=== PATIENT | female | born 2000 | race Caucasian/White ===

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

== ENCOUNTER → 2018-01-27 17:20 | Emergency (ER) | payer BC ==
[~2018-01-27 17:20] MED LIST: NS 0.9% 1000 ML* 1,000 ML IV ONE
[2018-01-27 17:50] LABS: ABS Basophils 0 10^3/ul (0-0.2); ABS Eosinophils 0 10^3/ul (0-0.6); ABS Lymphocytes 1.1 10^3/ul (1.0-4.8); ABS Monocytes 0.4 10^3/ul (0-0.8); ABS Neutrophils 6.9 10^3/ul (1.5-7.7); ABS Nucleated RBC 0 10^3/ul; Eosinophil % 0.1 %; Hematocrit 41 % (35-47); Hemoglobin 13.6 g/dl (12.0-16.0); Lymphocyte % 13.2 %; Mean Corpuscular HGB Conc 33 g/dl (31-36); Mean Corpuscular Hemoglobin 28 pg (27-31); Mean Corpuscular Volume 84 fL (80-97); Mean Platelet Volume 7.7 fL (7.4-10.4); Nucleated Red Blood Cells % 0; Platelet Count 310 10^3/ul (150-450); Red Blood Count 4.85 10^6/ul (4.00-5.40); Red Cell Distribution Width 16 % (10.5-15); White Blood Count 8.5 10^3/ul (3.5-10.8)
[2018-01-27 17:52] LABS: Urine Appearance Cloudy; Urine Blood 1+ (Negative); Urine Color Yellow; Urine Ketones Trace (Negative); Urine Protein Negative (Negative); Urine Red Blood Cell 1+(3-5/hpf) (Absent); Urine Specific Gravity 1.021 (1.010-1.030); Urine Urobilinogen Negative (Negative); Urine White Blood Cell Trace(0-5/hpf) (Absent)
[2018-01-27 18:30] VITALS: BP 127/65
--- NOTE | 2018-01-27 18:35 | ED ---
Syncope/Near Syncope - HPI Summary HPI Summary: Patient complains of one episode of syncope lasting 9 seconds this morning as well as feeling exhausted and stressed out 1 month. Syncope was unwitnessed, but patient states she will was able to play back to the security tape and observe event. Patient states she was walking along and then slumped towards nearby wall and slid down and denies any subsequent injury, pain. Patient states she works 100 hours a week and gets only a couple hrs of sleep a night x months. Denies any other symptoms including postictal phase, fever, cough, sore throat, MCKOY, neck stiffness, ear pain, CP, SOB, N/V/D, abdominal pain, change in urine, change in BM, vaginal symptoms. Patient states she just wants to be checked out. Medical history is none. - History Of Current Complaint Chief Complaint: EDGeneral Time Seen by Provider: 01/27/18 17:51 Hx Obtained From: Patient Onset/Duration: Sudden Onset Timing: Seconds Context: Unwitnessed, Loss Of Consciousness Activity At Onset: Other Associated Head Trauma: No Aggravating Factor(s): Nothing Alleviating Factor(s): Nothing Associated Signs And Symptoms: Negative - Allergies/Home Medications Allergies/Adverse Reactions: Allergies Allergy/AdvReac Type Severity Reaction Status Date / Time No Known Allergies Allergy Unverified 06/06/16 10:55 Home Medications: Home Medications Norelgest/Ethinyl Estr 150/35 [Xulane 150/35 PATCH] 1 patch TOPICAL WEEKLY 01/27 [History Confirmed 01/27/18] PMH/Surg Hx/FS Hx/Imm Hx Endocrine/Hematology History: Denies: Hx Anticoagulant Therapy Cardiovascular History: Denies: Hx Cardiac Arrest, Hx Congestive Heart Failure, Hx Hypertension, Hx Pacemaker/ICD, Other Cardiovascular Problems/Disorders Respiratory History: Reports: Hx Asthma Denies: Hx Chronic Obstructive Pulmonary Disease (COPD), Other Respiratory Problems/Disorders History: Denies: Hx Dialysis Neurological History: Denies: Hx CVA Infectious Disease History: No Infectious Disease History: Denies: Traveled Outside the [place] in Last 30 Days - Family History Known Family History: Positive: Hypertension - Social History Alcohol Use: None Substance Use Type: Reports: None Substance Use Comment - Amount & Last Used: 2x/week Hx Tobacco Use: No Smoking Status (MU): Former Smoker Type: Cigarettes Have You Smoked in the Last Year: Yes Review of Systems Positive: Fatigue Eyes: Negative ENT: Negative Cardiovascular: Negative Respiratory: Negative Gastrointestinal: Negative Genitourinary: Negative Musculoskeletal: Negative Skin: Negative Positive: Syncope Psychological: Normal All Other Systems Reviewed And Are Negative: Yes Physical Exam - Summary Physical Exam Summary: Physical exam unremarkable. Triage Information Reviewed: Yes Vital Signs On Initial Exam: Initial Vitals Temp Pulse Resp BP Pulse Ox 97.9 F 61 16 126/74 98 01/27/18 17:23 01/27/18 17:23 01/27/18 17:23 01/27/18 17:23 01/27/18 17:23 Vital Signs Reviewed: Yes Appearance: Positive: Well-Appearing Skin: Positive: Warm Head/Face: Positive: Normal Head/Face Inspection Eyes: Positive: Normal Neck: Positive: Supple Respiratory/Lung Sounds: Positive: Clear to Auscultation Cardiovascular: Positive: Normal Abdomen Description: Positive: Nontender Musculoskeletal: Positive: Normal Neurological: Positive: Normal Psychiatric: Positive: Normal AVPU Assessment: Alert - [place] Coma Scale Best Eye Response: 4 - Spontaneous Best Motor Response: 6 - Obeys Commands Best Verbal Response: 5 - Oriented Coma Scale Total: 15 Diagnostics - Vital Signs Vital Signs Temp Pulse Resp BP Pulse Ox 01/27/18 18:28 62 127/65 99 01/27/18 18:20 72 130/67 99 01/27/18 18:00 57 99 01/27/18 17:57 74 150/89 100 01/27/18 17:23 97.9 F 61 16 126/74 98 - Laboratory Lab Results: Lab Results 01/27/18 01/27/18 01/27/18 Range/Units 17:39 17:40 17:40 WBC 8.5 (3.5-10.8) 10^3/ul RBC 4.85 (4.00-5.40) 10^6/ul Hgb 13.6 (12.0-16.0) g/dl Hct 41 (35-47) % MCV 84 (80-97) fL MCH 28 (27-31) pg MCHC 33 (31-36) g/dl RDW 16 H (10.5-15) % Plt Count 310 (150-450) 10^3/ul MPV 7.7 (7.4-10.4) fL Neut % (Auto) 81.5 % Lymph % (Auto) 13.2 % Garrard % (Auto) 4.6 % Eos % (Auto) 0.1 % Baso % (Auto) 0.6 % Absolute Neuts (auto) 6.9 (1.5-7.7) 10^3/ul Absolute Lymphs (auto) 1.1 (1.0-4.8) 10^3/ul Absolute Monos (auto) 0.4 (0-0.8) 10^3/ul Absolute Eos (auto) 0 (0-0.6) 10^3/ul Absolute Basos (auto) 0 (0-0.2) 10^3/ul Absolute Nucleated RBC 0 10^3/ul Nucleated RBC % 0 Sodium 136 (135-145) mmol/L Potassium 4.1 (3.5-5.0) mmol/L Chloride 105 (101-111) mmol/L Carbon Dioxide 24 (22-32) mmol/L Anion Gap 7 (2-11) mmol/L BUN 18 (6-24) mg/dL Creatinine 0.86 (0.51-0.95) mg/dL Est GFR ( Amer) 102.9 (>60) Est GFR (Non-Af Amer) 85.0 (>60) BUN/Creatinine Ratio 20.9 H (8-20) Glucose 100 (70-100) mg/dL Calcium 9.9 (8.6-10.3) mg/dL Total Bilirubin 1.00 (0.2-1.0) mg/dL AST 18 (13-39) U/L ALT 14 (7-52) U/L Alkaline Phosphatase 48 (34-104) U/L Total Protein 7.7 (6.4-8.9) g/dL Albumin 4.7 (3.2-5.2) g/dL Globulin 3.0 (2-4) g/dL Albumin/Globulin Ratio 1.6 (1-3) Beta HCG, Quant < 0.60 mIU/mL Urine Color Yellow Urine Appearance Cloudy Urine pH 5.0 (5-9) Ur Specific Byron 1.021 (1.010-1.030) Urine Protein Negative (Negative) Urine Ketones Trace A (Negative) Urine Blood 1+ A (Negative) Urine Nitrate Negative (Negative) Urine Bilirubin Negative (Negative) Urine Urobilinogen Negative (Negative) Ur Leukocyte Esterase Negative (Negative) Urine WBC (Auto) Trace(0-5/hpf) (Absent) Urine RBC (Auto) 1+(3-5/hpf) A (Absent) Ur Squamous Epith Cells Present A (Absent) Urine Bacteria Absent (Absent) Urine Glucose Negative (Negative) Result Diagrams: 01/27/18 17:40 01/27/18 17:40 Lab Statement: Any lab studies that have been ordered have been reviewed, and results considered in the medical decision making process. Course/Dx Course Of Treatment: Patient complains of one episode of syncope lasting 9 seconds this morning as well as feeling exhausted and stressed out 1 month. Syncope was unwitnessed, but patient states she will was able to play back to the security tape and observe event. Patient states she was walking along and then slumped towards nearby wall and slid down and denies any subsequent injury , pain. Patient states she works 100 hours a week and gets only a couple hours of sleep a night x months. Denies any other symptoms including postictal phase , fever, cough, sore throat, MCKOY, neck stiffness, ear pain, CP, SOB, N/V/D, abdominal pain, change in urine, change in BM, vaginal symptoms. Patient states she just wants to be checked out. Medical history is none. Physical exam unremarkable. Vital signs within normal limits. Labs unremarkable except for mild dehydration. EKG sinus arrhythmia with bradycardic rate of 55. Similar to prior EKG on file. Patient given 1 L of fluids here in the ED. Advised to get 8 hours of sleep a night and maintain hydration. Follow-up with primary care. - Diagnoses Provider Diagnoses: Syncope, Exhaustion Discharge - Sign-Out/Discharge Documenting (check all that apply): Patient Departure - Discharge Plan Condition: Stable Disposition: HOME Patient Education Materials: Syncope (ED) Referrals: Jarred Canas MD [Primary Care Provider] - Additional Instructions: Drink plenty of fluids to maintain hydration. Try to get 8 hours of sleep a night. Follow-up with primary care. Return to the ED for any new or worsening symptoms - Billing Disposition and Condition Condition: STABLE Disposition: Home
--- NOTE | 2018-01-29 15:21 | PN ---
Progress Note - Progress Note Date of Service: 01/27/18 Note: Pt. seen in ED 01/29 for syncopal episode. Urine culture today is growing 75- 100k e. coli. I attempted to contact pt. today at [phone] with no answer and no voicemail setup. Will send rx for keflex based on sensitivity and send letter to return call to ER.
== END | disposition home or self-care (01) ==
LOC: ED 17:20
DX: R55 Syncope and collapse (principal); R53.83 Other fatigue; J45.909 Unspecified asthma, uncomplicated; Z87.891 Personal history of nicotine dependence; N39.0 Urinary tract infection, site not specified; B96.20 Unspecified Escherichia coli [E. coli] as the cause of diseases classified elsewhere; E86.0 Dehydration; R00.1 Bradycardia, unspecified
CPT/HCPCS: 36415; 80053; 81003; 81015; 84702; 85025; 87077; 87086; 87186; 93005; 96360; 96361; 99282

== ENCOUNTER 2021-04-21 13:46 | Observation (INO) ==
[2021-04-21] MEDS ORDERED: cefTRIAXone 2 GM ADDV.VIAL 2 GM in NS 0.9% 100 ml BAG 100 ML IVPB ONE (14:40)
[2021-04-21] MEDS ORDERED: Lactated Ringers 1000 ml BAG 1,000 ML IV ONE ×2 (14:40→23:55)
[2021-04-21] MEDS ORDERED: Ondansetron 4 mg VIAL 2 MG/ML 2 ml VIAL IV ONE (14:40)
[2021-04-21 14:58] LABS: Hematocrit 42 % (35-47); Hemoglobin 14.3 g/dL (12.0-16.0); Mean Corpuscular HGB Conc 34 g/dL (31-36); Mean Corpuscular Hemoglobin 31 pg (27-31); Mean Corpuscular Volume 90 fL (80-97); Mean Platelet Volume 7.3 fL (7.4-10.4); Platelet Count 340 10^3/uL (150-450); Red Blood Count 4.68 10^6 /uL (3.70-4.87); Red Cell Distribution Width 13 % (10-15); White Blood Count 31.7 10^3/uL (3.5-10.8)
[2021-04-21 15:01] LABS: ABS Lymphocytes 0.4 10^3/ul (1.0-4.8); ABS Monocytes 3.2 10^3/ul (0-0.8); Lymphocyte % 1.1 %
[2021-04-21 15:17] LABS: Activated Partial Thrombo Time 34.1 seconds (26.0-38.0); INR 1.32 (0.86-1.15)
[2021-04-21 15:49] LABS: Albumin 4.6 g/dL (3.2-5.2); Albumin/Globulin Ratio 1.5 (1-3); C Reactive Protein 304.56 mg/L (<8.01); Calcium 9.7 mg/dL (8.6-10.3); Potassium 3.4 mmol/L (3.5-5.0); Total Bilirubin 0.8 mg/dL (0.2-1.0); Total Protein 7.6 g/dL (6.4-8.9); eGFR CKD-EPI 91.5 (>60)
[2021-04-21 16:36] LABS: High Sensitivity Troponin 1 Hr 4 pg/mL (<15)
[2021-04-21 16:41] LABS: HCG Pregnancy < 0.60 mIU/mL
[2021-04-21 16:59] LABS: Lipase < 10 U/L (11.0-82.0)
[2021-04-21 17:40] LABS: Urine Appearance Cloudy; Urine Bilirubin Negative (Negative); Urine Blood 2+ (Negative); Urine Color Yellow; Urine Glucose Negative (Negative); Urine Ketones 1+ (Negative); Urine Nitrite Negative (Negative); Urine Protein 1+(30 mg/dL) (Negative); Urine Specific Gravity 1.017 (1.002-1.030); Urine Urobilinogen Negative (Negative)
[2021-04-21 17:46] LABS: Urine Bacteria 1+ (Absent); Urine Red Blood Cell 2+(6-10/hpf) (Absent); Urine Squamous Epithelial Cell Present (Absent); Urine White Blood Cell 3+(>20/hpf) (Absent)
[2021-04-21] MEDS ORDERED: Iohexol 300 (CONTRAST) 10 ML SDV IV ONE (18:06)
[2021-04-21] MEDS ORDERED: Potassium Chlor 20 meq TAB.ER PO ONE (21:28)
[2021-04-22] MEDS ORDERED: Ondansetron 4 mg VIAL 2 MG/ML 2 ml VIAL IV PRN (00:10)
[2021-04-22 05:30] LABS: Hematocrit 38 % (35-47); Hemoglobin 12.9 g/dL (12.0-16.0); Mean Corpuscular HGB Conc 34 g/dL (31-36); Mean Corpuscular Hemoglobin 31 pg (27-31); Mean Corpuscular Volume 90 fL (80-97); Mean Platelet Volume 7.8 fL (7.4-10.4); Platelet Count 294 10^3/uL (150-450); Red Blood Count 4.22 10^6 /uL (3.70-4.87); Red Cell Distribution Width 13 % (10-15); White Blood Count 28.2 10^3/uL (3.5-10.8)
[2021-04-22 05:49] LABS: Albumin 3.7 g/dL (3.2-5.2); Albumin/Globulin Ratio 1.4 (1-3); C Reactive Protein 322.46 mg/L (<8.01); Calcium 9.3 mg/dL (8.6-10.3); Globulin 2.6 g/dL (2-4); Magnesium 1.8 mg/dL (1.9-2.7); Potassium 4.1 mmol/L (3.5-5.0); Total Bilirubin 0.6 mg/dL (0.2-1.0); Total Protein 6.3 g/dL (6.4-8.9); eGFR CKD-EPI 113.6 (>60)
[2021-04-22 06:58] LABS: ABS Basophils 0.1 10^3/ul (0-0.2); ABS Monocytes 2.9 10^3/ul (0-0.8); ABS Neutrophils 24.3 10^3/ul (1.5-7.7); Lymphocyte % 3.5 %
[2021-04-22] MEDS ORDERED: Magnesium Sulfate 2 gm BAG 2 GM/50 ML BAG IVPB ONE (07:24)
[2021-04-22] MEDS: DESOGESTREL ETHINYL ESTRADIOL PO SCH (08:31)
[2021-04-22] MEDS ORDERED: cefTRIAXone 1 gm/50 mL NS BAG 1 GM/50 ML BAG IVPB SCH (15:30)
[2021-04-23 05:38] LABS: Hematocrit 37 % (35-47); Hemoglobin 12.7 g/dL (12.0-16.0); Mean Corpuscular HGB Conc 34 g/dL (31-36); Mean Corpuscular Hemoglobin 31 pg (27-31); Mean Corpuscular Volume 91 fL (80-97); Mean Platelet Volume 7.8 fL (7.4-10.4); Platelet Count 289 10^3/uL (150-450); Red Blood Count 4.09 10^6 /uL (3.70-4.87); Red Cell Distribution Width 13 % (10-15); White Blood Count 15.5 10^3/uL (3.5-10.8)
[2021-04-23 05:59] LABS: Calcium 8.8 mg/dL (8.6-10.3); Magnesium 1.9 mg/dL (1.9-2.7); eGFR CKD-EPI 125.8 (>60)
[2021-04-23 06:19] LABS: ABS Lymphocytes 1.3 10^3/ul (1.0-4.8); ABS Monocytes 2.3 10^3/ul (0-0.8); ABS Neutrophils 11.9 10^3/ul (1.5-7.7); Eosinophil % 0.1 %; Lymphocyte % 8.1 %
[2021-04-23] MEDS ORDERED: Magnesium Sulfate IV 1GM/100ML 1 GM/100 ML BAG IV ONE (07:09)
[2021-04-23] MEDS ORDERED: Polyethylene Glycol 3350 17 GM PACKET PO ONE (08:31)
[2021-04-23] MEDS ORDERED: Senna TAB 8.6 mg TAB PO ONE (08:31)
[2021-04-23] MEDS: DESOGESTREL ETHINYL ESTRADIOL PO SCH (10:24)
[2021-04-23 12:34] VITALS: BP 107/57
== END 2021-04-23 14:42 | disposition home or self-care (01) ==
LOC: ED 13:46 → MEDTELE 21:21 → SUATTDRO 21:21 → INTOOBSV 21:21 → MEDTELE 04-22 00:30
PROVIDERS: ADMIT Internal Medicine; ATTEND Internal Medicine

== ENCOUNTER 2023-08-14 03:47 | Inpatient (IN) ==
[2023-08-14] MEDS: Lactated Ringers 1000 ml BAG IV.FLUID IV ONE (07:48)
[2023-08-14] MEDS: Prochlorperazine 5 mg/ml 2 ml VIAL (10 mg) IV PRN (07:49)
[2023-08-14] MEDS ORDERED: Lidocaine 1% VIAL 10 MG/ML 30 ML VIAL INJ PRN (11:05)
[2023-08-14 11:54] LABS: Hematocrit 36.2 % (35-45); Hemoglobin 12.1 g/dL (11.5-14.3); Mean Corpuscular Hemoglobin 29.6 pg (27-33); Mean Corpuscular Hgb Conc 33.4 g/dL (31-36); Mean Corpuscular Volume 88.6 fL (80-97); Mean Platelet Volume 8.8 fL (7.5-11.2); Platelet Count 396 10^3/uL (150-450); Red Blood Count 4.08 10^6/uL (3.63-4.92); Red Cell Distribution Width 14.8 % (12-17)
[2023-08-14 12:33] LABS: ABS Eosinophils 0.1 10^3/uL (0.0-0.5); ABS Lymphocytes 1.9 10^3/uL (1.0-4.8); ABS Monocytes 0.9 10^3/uL (0.0-0.9); Eosinophil % 0.6 %; Lymphocyte % 11.2 %; RBC Morphology Normal (Normal)
[2023-08-14] MEDS: Lactated Ringers 1000 ml BAG 1,000 ML IV SCH (14:35)
[2023-08-14] MEDS: OBEPIDURAL (200 ML) 200 ML EPIDURAL ONE (15:15)
[2023-08-14] MEDS: Lidocaine 1.5% EPI 1:200,000 30 ML SDV ONE (15:15)
[2023-08-14 18:39] LABS: Urine Benzodiazepine Screen None Detected (None Detect); Urine Cannabinoids Screen None Detected (None Detect); Urine Opiates Screen Presumptive Positive (None Detect)
[2023-08-14 18:51] LABS: Urine Appearance Clear; Urine Bilirubin Negative (Negative); Urine Blood Negative (Negative); Urine Color Light-Yellow; Urine Glucose Negative (Negative); Urine Ketones Negative (Negative); Urine Nitrite Negative (Negative); Urine Protein Negative (Negative); Urine Specific Gravity 1.008 (1.002-1.030); Urine Urobilinogen Negative (Negative)
[2023-08-15] MEDS: Oxytocin in LR 20,000 MILLI.UNIT/1,000 ML BAG IV SCH ×2 (00:06→14:47)
[2023-08-15] MEDS ORDERED: Bupivacaine 0.25% SDV PF 10 ML VIAL INJ ONE ×2 (02:38→07:39)
[2023-08-15] MEDS ORDERED: fentaNYL 100 mcg/2 ml 50 MCG/ML VIAL ONE ×2 (02:38→11:34)
[2023-08-15] MEDS ORDERED: Sodium Chloride 0.9% 10 ML ONE (02:39)
[2023-08-15] MEDS: OBEPIDURAL (200 ML) 200 ML EPIDURAL ONE (02:40)
[2023-08-15] MEDS: Buffered Lidocaine 1% SYRIN 1 ml INTRADERM ONE (07:36)
[2023-08-15] MEDS: Lactated Ringers 1000 ml BAG 1,000 ML IV SCH (07:36)
[2023-08-15] MEDS: Morphine 10 MG/ML VIAL (1 ml) IV ONE (07:45)
[2023-08-15] MEDS ORDERED: Bupivacaine-MPF SPINAL 7.5 MG/ML - 2ML AMP ONE (11:34)
[2023-08-15] MEDS ORDERED: Oxytocin 10 UNITS/ML 1 ML VIAL ONE (11:34)
[2023-08-15] MEDS ORDERED: Morphine PF AMP (0.5MG/ML) 5 MG/10 ML AMP ONE (11:34)
[2023-08-15] MEDS ORDERED: Ondansetron 4 mg VIAL 2 MG/ML 2 ml VIAL ONE (11:34)
[2023-08-15] MEDS ORDERED: Sodium Citrate/Citric Acid LIQ 15 ML UDC ONE (11:45)
[2023-08-15] MEDS: ceFOXitin 2 GM IVPREMIX 2 GM/50 ML BAG IVPB ONE (11:58)
[2023-08-15] MEDS ORDERED: Phenylephrine 40 mcg/mL 10mL (400mcg) SYRINGE ONE (12:17)
[2023-08-15] MEDS ORDERED: Acetaminophen IV 1 GM/100ML 1,000 MG/100 ML BAG IV PRN (12:33)
[2023-08-15] MEDS ORDERED: Ondansetron 4 mg VIAL 2 MG/ML 2 ml VIAL IV PRN (12:33)
[2023-08-15] MEDS ORDERED: Naloxone 0.4 mg VIAL 0.4 mg/ml 1 ml VIAL IV PUSH PRN (12:33)
[2023-08-15] MEDS ORDERED: Metoclopramide 5 MG/ML VIAL (10 mg) IV PRN (12:33)
[2023-08-15] MEDS ORDERED: Acetaminophen IV 1 GM/100ML 1,000 MG/100 ML BAG IV ONE (12:36)
[2023-08-15] MEDS ORDERED: Witch Hazel PAD JAR TOPICAL PRN (13:40)
[2023-08-15] MEDS ORDERED: Glycerin ADULT 2.4 gm SUPP PR PRN (13:40)
[2023-08-15] MEDS ORDERED: Lactated Ringers 1000 ml BAG 1,000 ML IV SCH (14:00)
[2023-08-15] MEDS: Measles, Mumps,Rubella VACC 0.5 ML/VIAL SUBCUT ONE (19:01)
[2023-08-16 06:18] LABS: ABS Eosinophils 0.3 10^3/uL (0.0-0.5); ABS Lymphocytes 1.6 10^3/uL (1.0-4.8); ABS Monocytes 1.4 10^3/uL (0.0-0.9); Eosinophil % 1.4 %; Hematocrit 26.9 % (35-45); Hemoglobin 9.2 g/dL (11.5-14.3); Lymphocyte % 7.8 %; Mean Corpuscular Hemoglobin 29.9 pg (27-33); Mean Corpuscular Volume 87.7 fL (80-97); Mean Platelet Volume 7.9 fL (7.5-11.2); Platelet Count 299 10^3/uL (150-450); Red Blood Count 3.06 10^6/uL (3.63-4.92); Red Cell Distribution Width 14.8 % (12-17); White Blood Count 20.2 10^3/uL (3.8-11.8)
[2023-08-17 07:39] VITALS: BP 135/86
== END 2023-08-17 14:31 | disposition home or self-care (01) | DRG 540 ==
LOC: MCHOBOUT 03:47 → MCHOB 11:08
PROVIDERS: ADMIT Midwife; ATTEND Obstetrics & Gynecology